=== PATIENT | female | born 1950 | race Caucasian/White ===

== ENCOUNTER 2025-04-25 11:25 | Outpatient (AMB) | payer MEDICARE, SELFPAY ==
--- NOTE | 2025-04-25 11:27 | A.OFFVIS_ITS ---
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 The knee replacement was performed in March 2024, and the patient reports persistent pain around the knee, sometimes extending to the calf . The pain is described as all-encompassing around the knee, with exquisite tenderness noted upon palpation. The patient also has a history of neuromas and neuropathy in both feet, characterized by numbness and tingling, which existed prior to the knee surgery. There is no history of diabetes, which could contribute to the neuropathy. Additionally, the patient had a basal cell carcinoma removed from the scalp over a year ago, which still causes tingling sensations. Pain Description - Onset: Pain began after knee arthroplasty in March 2024 - Quality: Described as all-encompassing around the knee - Location: Right knee, sometimes extending to the calf - Exacerbating factors: Activities such as deep water aerobics increase pain - Relieving factors: None specifically mentioned Physical Exam - Musculoskeletal: Exquisite tenderness to palpation along the right knee with a midline scar Pain Management - Affect: Pain impacts patient's ability to perform activities such as deep water aerobics - Analgesia: No specific pain medications discussed - Adverse Effects: None reported - Activities of Daily Living: Pain interferes with activities like deep water aerobics - Aberrant Drug Related Behaviors: None reported [facility] Medical History (Updated 03/29/25 @ 10:20 by Iris Harding LPN) Other chronic pain Pain in right knee Surgical History (Updated 03/29/25 @ 10:20 by Iris Harding LPN) Presence of right artificial knee joint Physical Exam Vital Signs: Last Vital Signs Pulse 90 04/25/25 11:43 Resp 16 04/25/25 11:43 BP 148/76 H 04/25/25 11:43 Pulse Ox 97 04/25/25 11:43 Oxygen Delivery Method Room Air 04/25/25 11:43 BMI result Body Mass Index 23.4 Assessment & Plan Assessment & Plan (1) Pain in right knee: Code(s): M25.561 - Pain in right knee Category: Medical (2) Other chronic pain: Code(s): G89.29 - Other chronic pain Category: Medical (3) Presence of right artificial knee joint: Code(s): Z96.651 - Presence of right artificial knee joint Category: Medical Plan Plan Patient was informed and verbally consented to the use of an ambient scribe for clinic note documentation during this visit. 1. Right Knee Pain Post Knee Arthroplasty - Plan to trial peripheral nerve stimulation for pain management, pending insurance authorization - Discussed insurance coverage issues, particularly with Medicare administered by [employer] - Procedure involves temporary placement of a nerve stimulator for two months - Patient advised on restrictions during the procedure, including no deep water activities 2. Neuromas And Neuropathy In Both Feet - No specific management plan discussed during this visit Discussion Notes We discussed the option of peripheral nerve stimulation for managing chronic knee pain following total joint arthroplasty. I explained the procedure, including the temporary nature of the nerve stimulator and the insurance coverage issues, particularly with Medicare administered by [employer]. The patient was informed about the restrictions during the procedure, such as avoiding deep water activities. We will proceed with the procedure if insurance authorization is obtained. Patient Instructions - Await insurance authorization for nerve stimulation procedure - Avoid deep water activities during the procedure - Review the brochure provided for more information on the procedure Coding Level of Care Code New Pt Level 4 (33386) Diagnoses Pain in right knee M25.561 Other chronic pain G89.29 Presence of right artificial knee joint Z96.651
[2025-04-25 11:43] VITALS: BP 148/76; PULSE 90; RESP 16; O2SAT 97; BMI 23.4
--- OUTSIDE RECORDS SUMMARY | 2025-04-25 23:41 | XMS_ITS | Data Portability ---
Author Organization [place] - [facility], Allergy Address [address] [address] Care Team Providers Care Card Table Attendant Name Role Phone RADHA NARAYAN Primary Care Provider Assessment Encounter Date Assessment Date Assessment LastModified by Organization Details LastModified Time 09/03/2024 09/03/2024 Audiogram demonstrates a moderate low frequency conductive hearing loss on the left and a mild low frequency conductive hearing loss on the right. Normal acoustic reflexes bilaterally on last year's audiogram. Audiogram was reviewed with the patient. There are no obvious physical exam findings to explain the conductive hearing loss, suggesting otosclerosis as a likely cause despite normal reflexes. I have recommended that she follow up with Dr. Unger. [email or web address] Not available 09/04/2024 15:07:07 04/04/2025 04/04/2025 Patient has bilateral mixed hearing loss affecting the left ear greater than right. It is somewhat unusual pattern of conductive hearing loss in that it is affecting the low-frequency hearing more so than the mid and high frequencies. Furthermore present tympanic reflexes have been documented in the past. While there are some characteristics of otosclerosis here, I would likely get CAT scan of the temporal bones prior to considering any exploratory surgery. Today we discussed surgery as an option, but she has very little interest in pursuing a surgical solution. Alternatively, she would be very eager to consider amplification technology. Her wears hearing aids and does very well with this technology. In light of this, we will set her up for hearing aid evaluation. She is medically cleared for amplification bilaterally. If she does change her mind in the future and wants to consider possible surgical solution, I would recommend getting a CAT scan of the temporal bones to look for other etiologies of conductive hearing loss that may or may not be surgically amenable to reconstruction. [email or web address] Not available 04/04/2025 16:56:30 Plan of Treatment Reminders Order Date Submit Date Provider Last Modified By Organization Details Last Modified Time Details Appointments TURNER IF - ARG Verified 2024 03:00P M ENMA DIAMOND Not available Not available Not available Lab None recorded. Referral None recorded. Procedures None recorded. Surgeries None recorded. Imaging None recorded. Medication Orders None recorded. Patient TargetsNo targets recorded. Patient InstructionsNo instructions recorded. Reason for Referral None Reported. Results Created Date Observation Date Name Description Value Unit Range Abnormal Flag Note LastModifiedBy Organization Detail LastModifiedTime 09/04/19 audio gram No observ ation record ed. BARCODE Not Available 2024 15:30:18 04/05/2004/04/2025 audio gram No observ ation record ed. [email or web address] Not Available 2024 09:26:47 Result Notes None recorded. Problems Name Problem SNOMED Code Status Onset Date Resolution Date Notes Provider Name and Address Organization Details Recorded Time Mixed conductiv e and sensorine ural hearing loss, bilateral 052334117 Active 2023 Mixed conductive and sensorineu ral hearing loss, bilateral; Note: Date Diagnosed: 08/06/2023 4:34 PM (H90.6) Not Available [facility] 02:57:16 Conductiv e hearing loss, bilateral 243050644 Active 2023 Conductive hearing loss, bilateral; Note: Date Diagnosed: 10/13/2023 1:48 PM (H90.0) Not Available [facility] 02:57:18 Mixed conductiv e AND sensorine ural hearing loss 52208916 Active 2024 LANA HUERTA, AUD [address] [facility],[place] [address], [facility] [place], [address] , [facility] - [facility] 16:20:55 Problem Notes None recorded. Procedures Surgical History Date Name Laterality Status Provider Name and Address Organization Details Recorded Time 04/04/2025 Comp Audio with Tymps - 49542 & 84513 completed LANA HUERTA, AUD [address] [facility],[place] [address], [place], [address], [facility] - [facility] 04/04/2025 16:20:31 09/03/2024 Comp Audio with Tymps - 65132 & 00745 completed BABATUNDE CROSS, AuD [address] [facility] [place],[facility] [address], [place], [address], [facility] - [facility] 09/03/2024 09:05:50 Imaging Results None recorded. Procedure Notes None recorded. Medical Equipment None Reported. Allergies Allergen ID Allergen Name Allergen Category Reaction Reaction Severity Criticality Documentation Date Start Date Code Code System Note Provider Name and Address Organization Details Recorded Time 833683 Oxycontin medicatio n nausea Not available Not available 01/09/2024 85498 6 RxNorm React ion: vomit ing;; Not Available [facility] 4 00:29:11 137046 oxycodone medicatio n Not available Not available Not available 04/22/2025 7804 RxNorm Not Available [employer] - prod 5 12:22:24 149516 codeine medicatio n Not available Not available Not available 04/22/20252023 2670 RxNorm unrec ogniz ed react ion (text : Unkno wn, code: 36913 5006) (from exter nal sourc e) Not Available [facility] [employer] - prod 5 12:22:36 030325 cortisone medicatio n Not available Not available [facility] 04/22/20252023 2878 RxNorm Not Available [facility] [employer] - prod 5 12:22:36 636833 triamcino lone acetonide medicatio n Not available Not available Not available 04/22/20252018 89318 RxNorm State d that recei cahrley react ion after CS injec tion into R knee years ago. unrec ogniz ed react ion (text : Eryth libia Multi forme , code: 41394 001) (from exter nal sourc e) Not Available [employer] - prod 5 12:22:36 373635 lidocaine medicatio n Not available Not available Not available 04/22/20252018 6387 RxNorm unrec ogniz ed react ion (text : Eryth libia Multi forme , code: 77053 001) (from exter nal sourc e) Not Available [employer] - External Data Service - prod 12:22:36 937847 Non-stero idal anti-infl ammatory agent (substanc e) medicatio n Not available Not available Not available 04/22/20252023 86835 5008 SNOMED Per gi Not Available [employer] - External Data Service - prod 12:22:36 Medications Name Sig Start Date Stop Date Status Note LastModified by Organization Details LastModified Time doxycycli ne hyclate 100 mg capsule TAKE 1 CAPSULE BY MOUTH TWICE DAILY X 5 DAYS WITH FOOD AND A GLASS OF WATER. 09/03 completed Not Available Not Available Not Available pravastat in 40 mg tablet TAKE 1 TABLET DAILY active Not Available Not Available No t Available hydrocodo ne 5 mg-acetam inophen 325 mg tablet TAKE 1 TABLET BY MOUTH EVERY 8 HOURS NEEDED FOR PAIN TAKE SMALLEST LEAST FREQUENT EFFECTIV E DOSE. 09/03 completed Not Available Not Available Not Available sumatript an 25 mg tablet PLEASE SEE ATTACHED FOR DETAILED DIRECTIO NS active Not Available Not Available No t Available alclometa sone 0.05 % topical cream APPLY SPARINGL Y TWICE A DAY TO ITCHY AREAS FOR UP TO 10 DAYS 09/03 completed Not Available Not Available Not Available amlodipin e 5 mg tablet TAKE 1 TABLET DAILY active Not Available Not Available No t Available tramadol 50 mg tablet TAKE 1 TABLET (50 MG TOTAL) BY MOUTH EVERY 8 HOURS NEEDED FOR PAIN 04/04 completed Not Available Not Available Not Available amoxicill in 500 mg tablet TAKE 4 TABLETS BY MOUTH 1 HOUR BEFORE SURGERY 09/03 completed Not Available Not Available Not Available levothyro xine 100 mcg tablet TAKE 1 TABLET BY MOUTH EVERY DAY IN THE MORNING active Not Available Not Available No t Available levothyro xine 88 mcg tablet 09/03 completed Medicati on ID: [id number] B rand Name: levothyr oxine Se nd Method: E-Prescr ibed Sub s Allowed: subs OK Medic ationGen ericName : levothyr oxine Not Available Not Available Not Available tamsulosi n 0.4 mg capsule TAKE 1 CAPSULE BY MOUTH EVERY DAY FOR 7 DAYS 04/04 completed Not Available Not Available Not Available misoprost ol 100 mcg tablet TAKE 1 TABLET BY MOUTH 2 (TWO) TIMES A DAY. TAKE WITH CELEBREX TO HELP PROTECT YOUR STOMACH 04/04 completed Not Available Not Available Not Available celecoxib 100 mg capsule TAKE 1 CAPSULE BY MOUTH TWICE A DAY FOR 2 WEEKS 04/04 completed Not Available Not Available Not Available ondansetr on 4 mg disintegr ating tablet DISSOLVE 1 TABLET ON THE TONGUE EVERY 6 HOURS NEEDED FOR NAUSEA OR VOMITING active Not Available Not Available No t Available CoQ10 09/03 completed Medicati on ID: [id number] B rand Name: CoQ10 Se nd Method: E-Prescr ibed Sub s Allowed: subs OK Medic ationGen ericName : CoQ10 Not Available Not Available Not Available multivita min active Medicati on ID: [id number] B rand Name: Multivit ortiz Sen d Method: E-Prescr ibed Sub s Allowed: subs OK Medic ationGen ericName : Multivit ortiz Not Available Not Available Not Available Calcium 500 09/03 completed Medicati on ID: [id number] B rand Name: Calcium 500 Send Method: E-Prescr ibed Sub s Allowed: subs OK Medic ationGen ericName : Calcium 500 Not Available Not Available Not Available Vitals None Recorded Social History Question Answer Notes LastModified by Organizat ion Details LastModified Time Tobacco Smoking Status Former Smoker Larisa pineda [place] - [facility] 09/03/2024 08:46:45 How Many Years Have You Consumed Alcohol? 55 [email or web address] Information not available 04/04/2025 What Type Of Assistant At Surgery Do You Use? None [email or web address] Information not available 04/04/2025 How Many Alcoholic Drinks Do You Consume Per Day On Average? 0 [email or web address] Information not available 04/04/2025 Which Illicit Or Recreational Drugs Have You Used? THC/CBD Chews [email or web address] Information not available 04/04/2025 When Did You Quit Smoking? 16+yearssin [place] [email or web address] Information not available 04/04/2025 How Many Years Have You Used Illicit Or Recreational Drugs? 2 [email or web address] Information not available 04/04/2025 What Is Your Current Pack Years? 10packyears [email or web address] Information not available 04/04/2025 Do You Have Any Pets? No [email or web address] Information not available 04/04/2025 At What Age Did You Start Smoking Tobacco? 17 [email or web address] Information not available 04/04/2025 Are You Passively Exposed To Smoke? No [email or web address] Information no t available 04/04/2025 Are There Any Smokers In Your House? No [email or web address] Information not available 04/04/2025 How Much Tobacco Do You Smoke? No [email or web address] Information not available 04/04/2025 How Many Years Have You Smoked Tobacco? 4 [email or web address] Information not available 04/04/2025 Have You Used IV Drugs? No [email or web address] Information not available 04/04/2025 Sex: Unknown Functional Status Question Answer Note LastModified by Organization Details LastModified Time How many times per week do you consume alcohol? Less than 1 time per week [email or web address] Inform ation not available 04/04/2025 Do you use any illicit or recreational drugs? Yes [email or web address] Information not available 04/04/2025 Do you or have you ever used any other forms of tobacco or nicotine? No [email or web address] Information not available 04/04/2025 What is your level of alcohol consumption? Occasional [email or web address] Information not available 04/04/2025 What type of noise exposure are you exposed to? noExposureToExcessiveNoise [email or web address] Infor mation not available 04/04/2025 Mental Status None recorded. Family History Nothing Reported. Medical History Condition Response Allergies/Hayfever Y Heart Problems N Anxiety N Tonsil Infections N Emphysema N Migraines Y Thyroid Problems Y Depression N COPD N Developmental Delay N Glaucoma N Nasal or Sinus Problems N Anemia N Immune System Disorder N Anesthesia Complications N Heart Attack ([place]) N Other Skin Condition N Diabetes N Rhinitis N Bleeding Disorder N Food Allergy N Hearing Loss Y Arthritis Y Hyperlipidemia N Cancer N Stroke N Dementia N Nasal polyps N Asthma N Sleep Disorder Y High Cholesterol Y GERD/Reflux N Liver Disease N Headaches N Fibromyalgia N Hypertension Y Speech Delay N Kidney Disease N Gynecological HistoryNo gynecological history recorded. Obstetrics History GPAL:G 0 P 0 0 0 0 Past Encounters Encounter ID Performer Location Encounter Start Date Encounter Closed Date Diagnosis/Indication Diagnosis SNOMED-CT Code Diagnosis ICD10 Code Diagnosis IMO Codes Diagnosis Note [id number] THERESA DE LA TORRE PA-C [facility] on [address] [place] [id number] 09/03/2024 08:23:04 09/03/2024 09:50:47 Mixed conductive and sensorineural hearing loss, bilateral 493231483 H90.6 Audiologic al evaluation results: Right ear: Mild low frequency mixed hearing loss with excellent word recognitio n. Left ear: Moderate low frequency sensorineu ral hearing loss with excellent word recognitio n. Tympanomet ry: Right Ear:Type A Left Ear:Type A [id number] ANEESH UNGER MD [facility] on [address] [place] [phone] 04/04/2025 15:51:43 04/04/2025 16:46:27 Mixed conductive AND sensorineural hearing loss 58679769 H90.A32 [id number] Audiologic al evaluation results: 04/04/2025 Right ear: Mild rising to borderline normal sloping to a moderate sensorineu ral hearing loss with excellent word recognitio n. Left ear: Moderate rising to borderline normal sloping to a moderate mixed hearing loss with excellent word recognitio n. Tympanomet ry: Right Ear:Type A Left Ear:Type A Health Concerns Section Related Observation LastModified by Organization Detai ls LastModified Time None Recorded Concern Status LastModified by Organization Details LastModified Time None Recorded Advance Directives Directive None Recorded Payers Insurance Date Sequence Insurance Name Policy Number Policy Hendrickson Covered Member ID Hendrickson Member ID Guarantor Name 09/30/2024 1 [place] [employer] Carleen Palmer [id number] Carleen Palmer 04/25/2025 1 [place] (MEDICARE [place]PLACEMENT PPO) [id number] Carleen Palmer [id number] Carleen Palmer Notes Date Note Type Note Provider Name and Address Organization Details Recorded Time 09/03/2024 text/html ROS as noted in the HPI 74 year old female presents for hearing reevaluation. She had audiometric testing last October that showed mild conductive hearing loss bilaterally left greater than right and normal reflexes. She has left sided tinnitus. Overall she denies significant issues with her hearing in everyday conversation. DANIEL WILDE MD [address] [facility],[place] [address], [place], [address], [facility] - [facility] 09/06/2024 12:40:35 04/04/2025 text/html 74-year-old female with audiometric testing showing mild low-frequency mixed hearing loss bilaterally. She has had audiometric test in the past demonstrating normal tympanic reflexes. Patient was sent to me for further evaluation of this loss. Last audiogram was 7 months ago. Patient reports that the hearing in the left ear is worse than the right. There is a strong family history of early onset hearing loss, but no other family members have been offered or received surgery for their hearing loss. ANEESH UNGER MD [address] [facility],[place] [address], [place], [address], [facility] 04/04/2025 16:57:01 OBGyn Episode No OBEpisode recorded.
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
== END 2025-04-25 12:08 | disposition home or self-care (01) ==
PROVIDERS: PCP Nurse Practitioner Adult Health; Visit Provider Internal Medicine
DX: M25.561 Pain in right knee (principal); G89.29 Other chronic pain; Z96.651 Presence of right artificial knee joint
CPT/HCPCS: 99204

== ENCOUNTER → 2025-04-25 11:25 | Outpatient (BNVA) | payer MEDICARE, SELFPAY | PROVIDERS: Visit Provider Internal Medicine | DX: M25.561 Pain in right knee (principal); G89.29 Other chronic pain; Z96.651 Presence of right artificial knee joint | CPT/HCPCS: 99202 ==